=== PATIENT | female | born 1950 | race African-American/Black ===

== ENCOUNTER 2020-10-19 06:05 | Emergency (ER) | payer OTHER, MEDICAID ==
[~2020-10-19] VITALS: Ht 170.2 cm; Wt 87.0 kg
[~2020-10-19 06:05] MED LIST: ASPI-1497 PO; CYAN-50 PO; FENUGREEK; GABA-532 PO; LOSA50TA41 PO; METF-415 PO; SIMV-46 PO; echinacea
[2020-10-19 06:07] VITALS: BP 216/96
== END 2020-10-19 07:57 | disposition left against medical advice (07) ==
LOC: ER 06:05 → CANBEDREQ 12:44
DX: R00.2 Palpitations (principal); I10 Essential (primary) hypertension; E11.9 Type 2 diabetes mellitus without complications
CPT/HCPCS: 93005; 99283